=== PATIENT | male | born 1995 | race Caucasian/White ===

== ENCOUNTER 2020-10-31 18:44 | Emergency (ER) | payer OTHER ==
[2020-10-31] MEDS ORDERED: NAPROXEN500 MG PO (21:39)
[2020-10-31] MEDS ORDERED: BACLOFEN 10MG T10 MG PO (21:39)
== END 2020-10-31 22:00 | disposition home or self-care (01) ==
LOC: FER 18:44
DX: M54.5 Low back pain (principal); M25.551 Pain in right hip; Z88.0 Allergy status to penicillin; V49.40XA Driver injured in collision with unspecified motor vehicles in traffic accident, initial encounter; Y92.410 Unspecified street and highway as the place of occurrence of the external cause
CPT/HCPCS: 72100; 73502; 96372; J1100; J1885